=== PATIENT | male | born 1955 | race Caucasian/White ===

== ENCOUNTER 2020-04-25 14:41 | Inpatient (IN) | payer MEDICARE ==
[~2020-04-25] VITALS: Ht 175.3 cm; Wt 77.1 kg
[2020-04-25 15:33] LABS: BASOPHILS 0.1 % (0-2); EOSINOPHILS 0.6 % (0-7); HEMATOCRIT 38.9 % (42.0-54.0); HEMOGLOBIN 13.4 g/dL (13.5-17.5); IMMATURE GRANULOCYTES 0.3 % (0-5); LYMPHOCYTES 18.3 % (15-50); MCH 30.7 pg (26.0-34.0); MCHC 34.4 g/dL (31.0-37.0); MEAN PLATELET VOLUME 8.1 fL (7.4-10.4); MONOCYTES 6.5 % (2-11); NEUTROPHILS 74.2 % (40-80); PLATELET COUNT 220 10x3/uL (130-400); RBC 4.37 10x6/uL (4.20-6.10); RDW 12.3 % (11.5-14.5); WBC 6.8 10x3/uL (4.8-10.8)
[2020-04-25 16:01] LABS: PROTIME 13.1 SECONDS (11.6-15.0)
[2020-04-25 16:07] LABS: ANION GAP 9.9 mmol/L (8-16); CALCIUM 8.7 mg/dL (8.5-10.1); CREATININE - SERUM 1.2 mg/dL (0.6-1.3); POTASSIUM - SERUM 3.9 mmol/L (3.5-5.1)
[2020-04-25 16:12] LABS: ALBUMIN 4.1 g/dL (3.4-5.0); BILIRUBIN - TOTAL 0.43 mg/dL (0.2-1.3); PROTEIN - SERUM 7.6 g/dL (6.4-8.2)
[2020-04-25 20:30] VITALS: BP 176/100
--- NOTE | 2020-04-25 21:46 | NUR ---
PT BECAME BRADYCARDIC AT THIS TIME. EDP INFORMED.
[2020-04-25 21:47] VITALS: BP 103/62
--- NOTE | 2020-04-25 21:52 | NUR ---
FSBS 135
--- NOTE | 2020-04-25 21:53 | NUR ---
HEART RATE IMPROVING 55. PT STATED FEELING BETTER AT THIS TIME.
[2020-04-25 21:55] VITALS: BP 103/62
[2020-04-25 21:58] LABS: HEMATOCRIT 37.4 % (42.0-54.0); HEMOGLOBIN 12.8 g/dL (13.5-17.5)
--- NOTE | 2020-04-25 22:01 | NUR ---
ASSISTED PT TO RESTROOM.
--- NOTE | 2020-04-25 22:15 | NUR ---
PT BACK TO ROOM AT THIS TIME.
[2020-04-25 22:42] VITALS: BP 135/80
[2020-04-25 23:31] VITALS: BP 135/80
--- NOTE | 2020-04-26 01:00 | NUR ---
PATIENT IN ROOM SITTING IN BED SIDE CHAIR BROTHER IN ROOM. CALL LIGHT WITHIN REACH. NO NEEDS AT THIS TIME. PATIENT STATES THAT HE DOSENT WANT TO BE HERE AND IF HE KNEW HE WOULD STOP BLEEDING HED LEAVE.
[2020-04-26 02:24] LABS: HEMATOCRIT 34.5 % (42.0-54.0); HEMOGLOBIN 11.6 g/dL (13.5-17.5)
[2020-04-26 02:43] LABS: CKMB 0.6 U/L (0.0-3.6); CREATINE KINASE 82 UL (21-232); TROPONIN-I < 0.017 ng/mL (0.000-0.060)
[2020-04-26 04:34] VITALS: BP 152/83
[2020-04-26 08:31] LABS: BASOPHILS 0.2 % (0-2); EOSINOPHILS 0.3 % (0-7); HEMATOCRIT 32.5 % (42.0-54.0); IMMATURE GRANULOCYTES 0.5 % (0-5); LYMPHOCYTES 13.6 % (15-50); MCH 30.3 pg (26.0-34.0); MCHC 33.8 g/dL (31.0-37.0); MCV 89.5 fL (80.0-100.0); MEAN PLATELET VOLUME 8.3 fL (7.4-10.4); MONOCYTES 4.6 % (2-11); NEUTROPHILS 80.8 % (40-80); PLATELET COUNT 218 10x3/uL (130-400); RBC 3.63 10x6/uL (4.20-6.10); RDW 12.7 % (11.5-14.5); WBC 6.5 10x3/uL (4.8-10.8)
[2020-04-26 08:45] LABS: % SATURATION 22 % (15-55); IRON 54 ug/dl (35-150); TOTAL IRON BIND CAPACITY 241 ug/dl (260-445); UNSAT IRON BIND CAPACITY 187 ug/dl (150-375)
[2020-04-26 09:00] VITALS: BP 143/78
[2020-04-26 09:09] LABS: CREATINE KINASE 129 UL (21-232); FERRITIN 134 ng/mL (3-244); TROPONIN-I < 0.017 ng/mL (0.000-0.060)
[2020-04-26 09:12] LABS: ALBUMIN 3.4 g/dL (3.4-5.0); ALKALINE PHOSPHATASE 62 U/L (30-120); ALT (SGPT) 15 U/L (10-68); BILIRUBIN - TOTAL 0.54 mg/dL (0.2-1.3); CALC OSMOLALITY 271 mosm/kg (275-300); CALCIUM 8.3 mg/dL (8.5-10.1); CARBON DIOXIDE 27.7 mmol/L (21.0-32.0); CHLORIDE - SERUM 103 mmol/L (98-107); CREATININE - SERUM 0.9 mg/dL (0.6-1.3); GLUCOSE 113 mg/dL (74-106); POTASSIUM - SERUM 4.3 mmol/L (3.5-5.1); PROTEIN - SERUM 6.6 g/dL (6.4-8.2); SODIUM 135 mmol/L (136-145); UREA NITROGEN 16 mg/dL (7-18); eGFR NON AFRICAN AMERICAN > 90 mL/min (90-120)
--- NOTE | 2020-04-26 09:35 | NUR ---
IV RESTARTED TO RIGHT HAND WITH 22 GAUGE CATH X 1 STICK AND FLUSHED WITH NS. LINE IS PATENT.
[2020-04-26 11:00] VITALS: BP 156/83
[2020-04-26 11:54] LABS: BILIRUBIN NEGATIVE (NEGATIVE); GLUCOSE NEGATIVE (NEGATIVE); KETONE NEGATIVE (NEGATIVE); NITRITE NEGATIVE (NEGATIVE); RED CELLS - URINE OCC /hpf (0-5); UROBILINOGEN NORMAL (NORMAL); WHITE CELLS - URINE NSEEN /hpf (NEGATIVE)
[2020-04-26 11:55] LABS: BACTERIA NONE SEEN /hpf (NEGATIVE); EPITHELIAL CELLS NSEEN /hpf (0-5)
[2020-04-26 13:53] VITALS: Ht 175.3 cm; Wt 77.1 kg
[2020-04-26 14:24] LABS: CKMB 1.2 U/L (0.0-3.6); CREATINE KINASE 168 UL (21-232); TROPONIN-I < 0.017 ng/mL (0.000-0.060)
[2020-04-26 14:27] LABS: HEMATOCRIT 27.2 % (42.0-54.0); HEMOGLOBIN 9.3 g/dL (13.5-17.5)
[2020-04-26 15:00] VITALS: BP 144/84
--- NOTE | 2020-04-26 18:17 | NUR ---
CONSENTS SIGNED FOR SURGERY.
[2020-04-26 20:00] VITALS: BP 131/72
[2020-04-26 21:47] LABS: HEMOGLOBIN 11.1 g/dL (13.5-17.5)
[2020-04-26 22:17] LABS: HEMATOCRIT 32.7 % (42.0-54.0)
[2020-04-27 01:43] LABS: HEMATOCRIT 32.3 % (42.0-54.0); HEMOGLOBIN 11.2 g/dL (13.5-17.5)
[2020-04-27 04:00] VITALS: BP 171/82
[2020-04-27 08:21] LABS: ALBUMIN 3.5 g/dL (3.4-5.0); ANION GAP 9.2 mmol/L (8-16); BILIRUBIN - TOTAL 0.57 mg/dL (0.2-1.3); CALCIUM 8.3 mg/dL (8.5-10.1); CARBON DIOXIDE 27.7 mmol/L (21.0-32.0); CREATININE - SERUM 1.1 mg/dL (0.6-1.3); MAGNESIUM - SERUM 2.5 mg/dL (1.8-2.4); POTASSIUM - SERUM 3.9 mmol/L (3.5-5.1); PROTEIN - SERUM 6.8 g/dL (6.4-8.2)
[2020-04-27 08:48] LABS: HEMATOCRIT 31.7 % (42.0-54.0); HEMOGLOBIN 10.9 g/dL (13.5-17.5)
[2020-04-27 09:00] VITALS: BP 142/82
[2020-04-27 11:00] VITALS: BP 142/79
[2020-04-27 11:11] LABS: HEMATOCRIT 31.7 % (42.0-54.0); HEMOGLOBIN 10.8 g/dL (13.5-17.5)
--- NOTE | 2020-04-27 12:54 | NUR ---
PRE-OPS GIVEN. LEAVING FOR OR BY BED.
[2020-04-27 15:00] VITALS: BP 107/58
[2020-04-27 15:48] VITALS: BP 121/64
--- NOTE | 2020-04-27 15:50 | NUR ---
BACK FROM OR. VS WNL. RIGHT GROIN DRSG CDI. WILL CONT. PLAN OF CARE.
[2020-04-27 17:31] LABS: HEMATOCRIT 29.7 % (42.0-54.0)
--- NOTE | 2020-04-27 19:38 | NUR ---
RECEIVED BEDSIDE REPORT. PATIENT IS ALERT AND ORIENTED, RESTING COMFORTABLY IN BED. RESPIRATIONS ARE EVEN AND UNLABORED. NO S/S OF DISTRESS. NO C/O PAIN. CALL LIGHT WITHIN REACH. WILL CPOC.
[2020-04-27 20:00] VITALS: BP 137/79
[2020-04-28] VITALS: BP 137/75
[2020-04-28 04:00] VITALS: BP 141/71
[2020-04-28 06:06] LABS: BASOPHILS 0 % (0-2); EOSINOPHILS 0.3 % (0-7); HEMATOCRIT 24.3 % (42.0-54.0); HEMOGLOBIN 8.1 g/dL (13.5-17.5); IMMATURE GRANULOCYTES 0.3 % (0-5); LYMPHOCYTES 11.5 % (15-50); MCH 30.3 pg (26.0-34.0); MCHC 33.3 g/dL (31.0-37.0); MEAN PLATELET VOLUME 8.4 fL (7.4-10.4); MONOCYTES 11.4 % (2-11); NEUTROPHILS 76.5 % (40-80); PLATELET COUNT 184 10x3/uL (130-400); WBC 7.5 10x3/uL (4.8-10.8)
[2020-04-28 06:07] LABS: RBC 2.67 10x6/uL (4.20-6.10)
--- NOTE | 2020-04-28 08:13 | OP ---
PATIENT NAME: QUINTEN ACE MEDICAL RECORD: [id number] :59 LOCATION:D. D.2120 ADMISSION DATE:04/25/20 SURGEON: QUINTEN FLORES MD DATE OF OPERATION: 04/27/2020 SURGEON: Quinten Flores MD PREOPERATIVE DIAGNOSES: Incarcerated left inguinal hernia, gastrointestinal bleeding and anemia. POSTOPERATIVE DIAGNOSES: Incarcerated left inguinal hernia, gastrointestinal bleeding, anemia, and diverticulosis. SURGERY: 1. Incarcerated left inguinal hernia repair with mesh. 2. Colonoscopy. COMPLICATIONS: None. SPECIMENS: Hernia sac. ANESTHESIA: General. OPERATIVE COURSE: After consent was obtained, the patient was taken to the operating room and placed in supine position on the operating table. General anesthesia was given via endotracheal intubation after a timeout was performed to confirm the correct patient and procedure. External landmarks and Ioban dressing was placed. External landmarks in the left groin were identified, ASIS and pubic tubercle. Local anesthetic was injected, two fingerbreadths medial, one fingerbreadth inferior to the ASIS. Lidocaine was also injected prior to making transverse skin incision, which was made with a 10-blade scalpel. Dissection then continued through the subcutaneous tissues using electrocautery until the external oblique fascia was identified again. A 10 cc of local anesthetic were injected below the external oblique fascia. The fascia was incised with 15-blade scalpel. Using a push cut technique, the incision was opened medially and laterally with Metzenbaum scissors. The external oblique fascia was gently dissected from the underlying tissue. The ilioinguinal nerve was identified and retracted superior. Self-retaining within retractor was placed. The cord was dissected off the pubic tubercle and a Dodge dressing was placed. The hernia sac was opened and a significant loop of sigmoid colon was identified. The sigmoid colon was then meticulously dissected free from the hernia sac. The hernia sac was well involved into the colonic mesentery. The colon was inspected. There was no evidence of strangulation or injury. The sigmoid colon was reduced, this was directed to the direct space. The direct space was closed by sewing the conjoined tendon to the inguinal ligament using interrupted 0 Vicryl suture. At this time, the cord structures were identified and retracted. An indirect hernia sac was identified on the cord vessels, which was dissected free. It was transected and sent for pathology. The internal ring was recreated during the repair with additional suturing to the conjoined tendon to the inguinal ligament. The ilioinguinal nerve was intact. The cord and vessels were intact. At this time, a Fermin repair was done with a Bard soft mesh, it was secured to the pubic tubercle medially, it was secured to the inguinal ligament inferiorly with interrupted 0 Prolene suture. The mesh was nichols holed around the cord structures. It was secured to the conjoined tendon superiorly with interrupted Prolene suture. Otoniel powder was applied OPERATIVE REPORT [id number] QUINTEN ACE into the operative field. The external oblique fascia was closed with 2-0 Vicryl sutures. The Karo's fascia was then closed with interrupted 3-0 Vicryl suture. Skin was closed with a 4-0 Stratafix, Mastisol, and Steri-Strips. At the end of this portion of the case, all needle and instrument counts were correct. All drapes were removed. The patient was placed in the frog-leg position on the operating table. Using a variable-stiffness colonoscope, the colonoscope was inserted through the rectum. It was advanced from the rectum to the cecum without difficulty. Approximately 10 minutes was spent on withdrawal of the scope at which time there was no obvious areas of bleeding, no ulcers or masses. No polyps were identified. The patient did have diverticular disease throughout the sigmoid colon, grade I internal hemorrhoids with no evidence of active bleeding. At this time, the colonoscopy was terminated. The patient was extubated and transferred to PACU in stable condition. TRANSINT:[id number] Voice Confirmation ID: [id number] DOCUMENT ID: [id number] QUINTEN FLORES MD at 0813 CC: [id number] DICTATION DATE: 04/27/20 1510 PRINCIPAL ENGINEER: 04/27/20 2332 ADM IN [place] [id number] [place] [address]
[2020-04-28 08:18] LABS: ALBUMIN 2.7 g/dL (3.4-5.0); BILIRUBIN - TOTAL 0.44 mg/dL (0.2-1.3); CALCIUM 7.5 mg/dL (8.5-10.1); CARBON DIOXIDE 24.8 mmol/L (21.0-32.0); CREATININE - SERUM 1.1 mg/dL (0.6-1.3); MAGNESIUM - SERUM 2.3 mg/dL (1.8-2.4); POTASSIUM - SERUM 3.8 mmol/L (3.5-5.1); PROTEIN - SERUM 5.6 g/dL (6.4-8.2)
[2020-04-28 08:38] LABS: HEMATOCRIT 26.4 % (42.0-54.0); HEMOGLOBIN 8.9 g/dL (13.5-17.5)
[2020-04-28 09:00] VITALS: BP 153/81
[2020-04-28 11:00] VITALS: BP 154/75
--- NOTE | 2020-04-28 13:55 | NUR ---
Nutrition Follow-up: S/p hernia repair and colonoscopy. Pt reports tolerating liquids this AM and awaiting solids for lunch. Noted pt with active BS. Diet: Regular WT: 170# (04/27) Labs noted: Ca 7.5, Alb 2.7 Meds noted: Protonix, NS @ 50, electrolyte protocol -Encourage PO intake and honor food preferences within diet restrictions. -Monitor wt; noted daily wts ordered. -RD following.
[2020-04-28 15:00] VITALS: BP 164/78
--- NOTE | 2020-04-28 15:00 | NUR ---
RECEIVED BEDSIDE REPORT. PATIENT IS ALERT AND ORIENTED, RESTING COMFORTABLY IN BED. RESPIRATIONS ARE EVEN AND UNLABORED. NO S/S OF DISTRESS. NO C/OPAIN. CALL LIGHT WITHIN REACH. WILL CPOC.
[2020-04-28 16:28] LABS: HEMATOCRIT 27.5 % (42.0-54.0); HEMOGLOBIN 9.2 g/dL (13.5-17.5)
[2020-04-28 20:00] VITALS: BP 178/80
[2020-04-28 20:58] LABS: HEMOGLOBIN 9.1 g/dL (13.5-17.5)
[2020-04-29 05:16] LABS: HEMATOCRIT 27.1 % (42.0-54.0); HEMOGLOBIN 9.3 g/dL (13.5-17.5); LYMPHOCYTES 11.2 % (15-50); MCH 31.3 pg (26.0-34.0); MCHC 34.3 g/dL (31.0-37.0); MCV 91.2 fL (80.0-100.0); MEAN PLATELET VOLUME 7.9 fL (7.4-10.4); NEUTROPHILS 79.3 % (40-80); PLATELET COUNT 202 10x3/uL (130-400); RBC 2.97 10x6/uL (4.20-6.10); RDW 12.8 % (11.5-14.5)
[2020-04-29 05:17] LABS: WBC 9.8 10x3/uL (4.8-10.8)
[2020-04-29 05:37] LABS: ALBUMIN 2.8 g/dL (3.4-5.0); ANION GAP 11.7 mmol/L (8-16); BILIRUBIN - TOTAL 0.67 mg/dL (0.2-1.3); CALCIUM 7.5 mg/dL (8.5-10.1); CARBON DIOXIDE 24.8 mmol/L (21.0-32.0); CREATININE - SERUM 1.1 mg/dL (0.6-1.3); POTASSIUM - SERUM 3.5 mmol/L (3.5-5.1)
--- NOTE | 2020-04-29 07:15 | NUR ---
RECEIVED PT IN BED EYES CLOSED RESP UNLABORED SKIN W/D COLOR WNL NAD NOTED
[2020-04-29 09:16] VITALS: BP 151/83
--- NOTE | 2020-04-29 11:08 | MORECARE ---
CASE MANAGEMENT DISCHARGE SUMMARY PATIENT: QUINTEN ACE UNIT: [id number] ADM DATE: 04/25/20 AGE: 65 : 59 SEX: M ROOM/BED: D.2120 AUTHOR: NILSON HUNTER PHYSICIAN: REFERRING PHYSICIAN: HERNANDEZ CRUZ MD DATE OF SERVICE: 04/29/20 Discharge Plan [facility] [facility] 1955 Planned Disposition: Anticipated Discharge Date: Discharge Date: Expected LOS: 0 Initial Reviewer: [email or web address] Initial Review Date: 04/29/2020 Generated: 04/29/20 12:08 pm Patient Name: QUINTEN ACE Page [id number] at 1108 All edits/amendments must be made on the electronic document DICTATION DATE: 04/29/20 110 SENIOR PASTOR: GREG 04/29/20 1108 RPT#: [id number] DC DATE: STATUS: ADM IN [facility] [address] [place] [address] END OF REPORT
--- NOTE | 2020-04-29 14:40 | NUR ---
REVIEWED DISCHARGE INSTRUCTIONS WITH PT STATES UNDERSTANDING COY GIVEN DCD SALINE LOCK TO RT WRIST WITH IV CATHETER INTACT SITE FREE OF REDNESS OR EDEMA DISCHARGED HOME LEFT UNIT VIA W/C IN STABLE CONDITION WITH ALL PERSONAL BELONGINGS
--- NOTE | 2020-04-30 09:14 | MORECARE ---
CASE MANAGEMENT DISCHARGE SUMMARY PATIENT: QUINTEN ACE UNIT: [id number] ADM DATE: 04/25/20 AGE: 65 : 59 SEX: M ROOM/BED: D.2120 AUTHOR: NILSON HUNTER PHYSICIAN: REFERRING PHYSICIAN: HERNANDEZ CRUZ MD DATE OF SERVICE: 04/30/20 Discharge Plan Patient Name: QUINTEN ACE [facility] [facility] 1955 Planned Disposition: Anticipated Discharge Date: Discharge Date: 04/29/2020 Expected LOS: 0 Initial Reviewer: [email or web address] Initial Review Date: 04/29/2020 Generated: 04/30/20 10:14 am Last DP export: 04/29/20 10:08 a Patient Name: QUINTEN ACE Page [id number] at 0914 All edits/amendments must be made on the electronic document DICTATION DATE: 04/30/20913 CLINICAL DATA SPECIALIST: GREG 04/30/20913 RPT#: [id number] DC DATE:04/29/20 STATUS: DIS IN [facility] [address] [place] [address] END OF REPORT
--- NOTE | 2020-04-30 15:38 | MORECARE ---
CASE MANAGEMENT DISCHARGE SUMMARY PATIENT: QUINTEN ACE UNIT: [id number] ADM DATE: 04/25/20 AGE: 65 : 59 SEX: M ROOM/BED: D.2371 AUTHOR: ELSA,DOC PHYSICIAN: REFERRING PHYSICIAN: HERNANDEZ CRUZ MD DATE OF SERVICE: 04/30/20 Discharge Plan Patient Name: QUINTEN ACE Facility: [facility]:[place] : 1955 Planned Disposition: Home Anticipated Discharge Date: 04/29/20 Discharge Date: 04/29/2020 Expected LOS: 4 Initial Reviewer: [email or web address] Initial Review Date: 04/29/2020 Generated: 04/30/20 4:37 pm Comments DCP- Discharge Planning Updated by [email or web address]: Micaela Fuentes on 04/30/20 2:[address] LATE ENTRY 04/29/20 Patient Name: QUINTEN ACE Admission Status: ER Accout number: [id number] Admission Date: 04-25-2020 : 1955 Admission Diagnosis:GASTROINTESTINAL HEMORRHAGE, UNSPECIFIED Attending: TASHA Current LOS: 4 Anticipated DC Date: 04-29-2020 Planned Disposition: Home Primary Insurance: MEDICARE A & B Discharge Planning Comments: CM met with patient to complete initial dc planning assessment. CM educated patient on the CM role and verbal consent given by patient to complete assessment. Patient lives at home with family. Patient is independent. At discharge patient plans to return home and feels this is a safe discharge. CM discussed availability of home health, rehab services, and medical equipment. Patient will have family to transport home. Patient denied known discharge needs at this time. D/C IMM SIGNED 04/29/20 @ 1124 CM will continue to follow and will assist as needed with dc plans/needs. Oracle Consultant: Micaela Fuentes DCPIA - Discharge Planning Initial Assessment Updated by [email or web address]: Micaela Fuentes on 04/30/20 3:33 pm * Is the patient Alert and Oriented? Yes * How many steps to enter\exit or inside your home? 2-3 * PCP [facility] * Pharmacy [facility] * Preadmission Environment Home with Family * ADLs Independent * Equipment None * Verbal permission to speak to the caregivers and representatives has been obtained from the patient. No * Community resources currently utilized None * Additional services required to return to the preadmission environment? No * Can the patient safely return to the preadmission environment? Yes * Has this patient been hospitalized within the prior 30 days at any hospital? No Coverage Notice Reviewer: [email or web address] Mariana Fuentes Notice Issued Date-Time: 04/29/2020 11:24 Notice Type: IM Discharge Notice Notice Delivered To: Patient Relationship to Patient: Self Curtain Supervisor Name: Delivery Method: HAND - Hand Delivered Pat Days: Prior Verbal Notification: Recipient Understood Notice: Yes Recipient Signature: Yes Med Rec Note Co-signed by Attending: Coverage Notice Comment: Last DP export: 04/30/20 8:14 a Patient Name: QUINTEN ACE Page [phone] at 1538 All edits/amendments must be made on the electronic document DICTATION DATE: 04/30/20 1537 RECONCILIATION ANALYST: GREG 04/30/20 1537 RPT#: [id number] DC DATE:04/29/20 STATUS: DIS IN [facility] [address] [place] [address] END OF REPORT
== END 2020-04-29 14:40 | disposition home or self-care (01) | DRG 351 ==
LOC: D.ER 14:41 → D.M2 21:23 → D.EDHOLD 21:24 → D.M2 04-26 00:08 → D.SDCHOLD 04-27 09:15 → D.M2 04-27 09:15
PROVIDERS: Family Medicine; Surgery; ADMIT Family Medicine; ATTEND Family Medicine
PROC: 0YU60JZ Supplement Left Inguinal Region with Synthetic Substitute, Open Approach (ICD-10-PCS; principal; 2020-04-27 12:30)
PROC: 0DJD8ZZ Inspection of Lower Intestinal Tract, Via Natural or Artificial Opening Endoscopic (ICD-10-PCS; 2020-04-27 12:30)
DX: K57.91 Diverticulosis of intestine, part unspecified, without perforation or abscess with bleeding (principal); E87.1 Hypo-osmolality and hyponatremia; D64.9 Anemia, unspecified; R73.9 Hyperglycemia, unspecified; K40.90 Unilateral inguinal hernia, without obstruction or gangrene, not specified as recurrent; K64.0 First degree hemorrhoids